=== PATIENT | male | born 1990 | race Caucasian/White ===

== ENCOUNTER 2019-08-21 17:44 | Emergency (ER) | payer OTHER ==
[~2019-08-21] VITALS: Ht 165.1 cm; Wt 70.3 kg
== END 2019-08-21 20:47 | disposition home or self-care (01) ==
LOC: ER 17:44
DX: J11.1 Influenza due to unidentified influenza virus with other respiratory manifestations (principal)

== ENCOUNTER 2020-03-09 08:56 | Emergency (ER) | payer OTHER ==
[~2020-03-09] VITALS: Ht 165.1 cm; Wt 68.0 kg
[2020-03-09] MEDS ORDERED: KETO10TA2 PO (10:44)
== END 2020-03-09 10:47 | disposition home or self-care (01) ==
LOC: ER 08:56
DX: S83.8X1A Sprain of other specified parts of right knee, initial encounter (principal); X50.1XXA Overexertion from prolonged static or awkward postures, initial encounter; Y93.01 Activity, walking, marching and hiking; Y92.89 Other specified places as the place of occurrence of the external cause; Y99.8 Other external cause status